=== PATIENT | male | born 1985 | race Caucasian/White ===

== ENCOUNTER 2017-12-04 23:48 | Emergency (ER) | payer MEDICAID ==
[~2017-12-04] VITALS: Ht 170.2 cm; Wt 60.4 kg
[2017-12-05 00:03] VITALS: BP 118/71
[2017-12-05] MEDS ORDERED: LIDOcaine Viscous 15ml cup MM PRN (04:30)
[2017-12-05] MEDS ORDERED: sucralfate 1gm/10ml UD suspension PO SCH (04:30)
[2017-12-05] MEDS ORDERED: mag hydrox/Alum hydrox/simeth 30ml oral suspension PO ONE (04:30)
== END 2017-12-05 05:06 | disposition home or self-care (01) ==
LOC: ER 23:49
DX: K21.9 Gastro-esophageal reflux disease without esophagitis (principal)
CPT/HCPCS: 99283

== ENCOUNTER 2017-12-30 13:36 | Emergency (ER) | payer MEDICAID ==
[~2017-12-30] VITALS: Ht 170.2 cm; Wt 65.6 kg
[2017-12-30 14:02] VITALS: BP 110/85
== END 2017-12-30 14:51 | disposition home or self-care (01) ==
LOC: ER 13:38
DX: S90.822A Blister (nonthermal), left foot, initial encounter (principal); S90.821A Blister (nonthermal), right foot, initial encounter; K21.9 Gastro-esophageal reflux disease without esophagitis; X58.XXXA Exposure to other specified factors, initial encounter; Y93.89 Activity, other specified; Y92.89 Other specified places as the place of occurrence of the external cause; Y99.8 Other external cause status
CPT/HCPCS: 99281

== ENCOUNTER 2018-01-12 17:10 | Emergency (ER) | payer MEDICAID ==
[~2018-01-12] VITALS: Ht 170.2 cm; Wt 67.0 kg
[2018-01-12 17:18] VITALS: BP 119/68
[2018-01-12] MEDS ORDERED: DOXY100C2 PO (19:32)
== END 2018-01-12 19:50 | disposition home or self-care (01) ==
LOC: ER 17:11
DX: L02.811 Cutaneous abscess of head [any part, except face] (principal); K21.9 Gastro-esophageal reflux disease without esophagitis; Z79.899 Other long term (current) drug therapy
CPT/HCPCS: 99283

== ENCOUNTER 2020-12-28 20:39 | Emergency (ER) | payer MEDICAID ==
[~2020-12-28] VITALS: Ht 170.2 cm; Wt 58.7 kg
[2020-12-28] MEDS ORDERED: CEPH-585 PO (22:37)
[2020-12-28 22:44] VITALS: BP 137/96
== END 2020-12-28 22:46 | disposition home or self-care (01) ==
LOC: ER 20:40
DX: S61.411A Laceration without foreign body of right hand, initial encounter (principal); K21.9 Gastro-esophageal reflux disease without esophagitis; Z72.89 Other problems related to lifestyle; W25.XXXA Contact with sharp glass, initial encounter; Y93.89 Activity, other specified; Y92.89 Other specified places as the place of occurrence of the external cause; Y99.8 Other external cause status
CPT/HCPCS: 73120; 99283

== ENCOUNTER 2024-10-07 15:04 | Emergency (ER) | payer MEDICAID ==
[~2024-10-07] VITALS: Ht 170.2 cm; Wt 75.7 kg
[2024-10-07] MEDS ORDERED: PSEU120T56 PO (17:06)
[2024-10-07] MEDS ORDERED: IBUP-864 PO (17:06)
[2024-10-07] MEDS ORDERED: AMOX-117 PO (17:06)
[2024-10-07 17:12] VITALS: BP 118/76; PULSE 110; RESP 16; TEMP 98.6; O2SAT 98
== END 2024-10-07 17:13 | disposition home or self-care (01) ==
LOC: ER 15:04
DX: J32.0 Chronic maxillary sinusitis (principal); J32.1 Chronic frontal sinusitis; K21.9 Gastro-esophageal reflux disease without esophagitis
CPT/HCPCS: 99283

== ENCOUNTER 2025-02-18 21:08 | Emergency (ER) | payer MEDICAID ==
[~2025-02-18] VITALS: Ht 170.2 cm; Wt 71.5 kg
[~2025-02-18 21:08] MED LIST: IBUP-864 PO; PSEU120T56 PO
[2025-02-18 21:12] VITALS: BP 139/80; PULSE 108; TEMP 98.2; O2SAT 98
--- NOTE | 2025-02-18 23:10 | RADIOLOGY REPORT ---
INDICATION: pain TECHNIQUE: AP, lateral and odontoid radiographs of the cervical spine. COMPARISON: None FINDINGS: No prevertebral soft tissue abnormality noted. Mild reversal of the normal cervical lordosis. No list hesis. The cervical vertebral bodies appear within normal limits. Degenerative disc disease at C5-C6 with [id number] disc space narrowing and osteophytes. The remainder of the levels in the cervic al spine appear unremarkable. Facet joints appear unremarkable. IMPRESSION: No acute abnormality identified. Degenerative disc disease at C5-C6.
--- NOTE | 2025-02-18 23:43 | Physician Documentation ---
History of Present Illness ~ Chief Complaint: Neck pain Stated Complaint: BACK PAIN Time Seen by MD: 21:29 Primary Medical Doctor: donna COLLIER 39-year-old male reports a chief complaint of neck pain. Patient states he feels like he slept on his neck wrong. States he believes he has could pinched nerve in my neck. Denies fevers or chills. Denies headaches. Currently not taking medications therapy has been in symptoms. No other complaints at this time Medication Reconciliation Allergies: Coded Allergies: No Known Allergies (Unverified , 10/07/24) Scheduled Ibuprofen (Ibu), 1 TAB PO Q8H Pseudoephedrine HCl (Sudafed 12 Hour), 1 TAB PO Q12H Past Medical History Past Medical History: GERD Past Surgical History: no surgical history Alcohol Use: Occasionally Drug Use: none Lives In: Home Occupation: employed Physical Exam Vital Signs: Temperature: 98.2, Source: Temporal, Heart Rate: 108, Respiratory Rate: 20, BP: 139/80, Pulse Oximetry: 98, Weight: 71.450 Oxygen Flow Rate: 0 Physical Exam General: Well developed, well nourished, no distress. HEENT: Atraumatic, normal conjunctiva, moist mucous membranes. Neck: Full range of motion, supple. Positive for midline tenderness to cervical spine see three-C7. Negative step-off. Positive for bilateral paraspinal tenderness C3-T1. C3-T1 motor sensory grossly intact with 5/5 strength in bilateral upper extremities. Negative Spurling's. Negative Aleena's. Respiratory: Lungs clear, no respiratory distress. Chest: No accessory muscle use, nontender. Cardiovascular: Regular rate and rhythm. Gastrointestinal: Soft, nontender, nondistended. Bowel sounds present. Extremities: Normal range of motion, nontender, normal capillary refill, no deformity. Back: No midline tenderness, no CVA tenderness. Neurologic: Oriented x4. Distal gross motor and sensory intact all four extremities. Moves all 4 extremities spontaneously. Psychiatric: Normal mood and affect. Skin: Normal color, warm and dry. No edema, no ecchymosis Progress Results/Orders Results/Orders Orders - MOOSE DURÁN Cyclobenzaprine Tablet (Flexeril Tablet) (02/18/25 21:30) Cervical [facility]ine Ltd (02/18/25 21:30) Lidocaine 5% Patch (Lidoderm 5% Patch) (02/19/25 08:00) Lidocaine 2% Viscous (Xylocaine 2% Visco (02/18/25 23:25) Completed Orders - MOOSE DURÁN Ketorolac Trometh 30mg/Ml Vial (Toradol (02/18/25 21:30) Dexamethasone Inj (Decadron 10mg/Ml Inj) (02/18/25 21:30) Cervical Spine Ltd (02/18/25 21:30) Hydrocodone/Apap 10/325 ([place] 10/325mg (02/18/25 23:25) Dicyclomine Capsule (Bentyl Capsule) (02/18/25 23:25) Mag & Alum Hydrox/Simeth Susp (Maalox Or (02/18/25 23:25) Vital Signs 02/18/25 21:12 Temp 98.2 Pulse 108 Resp 20 B/P (MAP) 139/80 Pulse Ox 98 O2 Flow Rate 0 Medical Decision Making Additional info obtained from: old records Findings After detailed discussion jet medical decision-making, diagnostic imaging results were discussed with patient. At this time patient appears just to have muscle strain to the neck. Patient will be given symptomatic treatment discharged with medications for pain. Patient is asking for refill of his GI medications we will be given. ER precautions given. Patient is stable upon discharge. All patient questions answered to satisfaction Differential Dx:Considerations: Include: Cervical muscle spasm, Discitis, DJD Departure Disposition: HOME / SELF CARE / HOMELESS Impression: Primary Impression: Neck pain Additional Impressions: Cervical strain Medication refill Condition: Stable Discharge Instructions: Cervical Sprain Referrals: NO PRIMARY CARE PROVIDER (PCP) Prescriptions Dicyclomine HCl (Dicyclomine HCl) 20 Mg Tablet 1 TAB PO Q12H for irritable bowel symptoms for 30 Days, #60 TAB 0 Refills Prov: MOOSE DURÁN 02/18/25 Lidocaine (Lidoderm) 5 % Adh..patch 1 PATCH TOP DAILY for 30 Days, #30 PATCH 0 Refills may wear up to 12 hours Prov: MOOSE DURNÁ 02/18/25 Cyclobenzaprine* (Cyclobenzaprine*) 10 Mg Tablet 1 TAB PO HS for muscle spasms for 30 Days, #30 TAB 0 Refills Prov: MOOSE DURÁN 02/18/25 Hydrocodone Bit/Acetaminophen 5/325 MG ([place] 5/325 MG) 5 Mg/325 Mg Tablet 1 TAB PO Q12H PRN PRN for pain for 5 Days, #10 TAB Prov: MOOSE DURÁN 02/18/25 Education Educated: Patient Educated regarding: diagnosis, treatment Signature Scribe Signature: none used Attestation: Scribed for Moose Durán by Moose PITTMAN . 02/18/25 23:52 MOOSE DURÁN February 18, 2025 23:43
[2025-02-18] MEDS ORDERED: HYDR-3965 PO (23:50)
[2025-02-18] MEDS ORDERED: DICY20TA17 PO (23:50)
[2025-02-18] MEDS ORDERED: CYCL-1 PO (23:50)
[2025-02-18] MEDS ORDERED: LIDO700A32 TOP (23:50)
[2025-02-18] MEDS: dexamethasone sod phosphate 10mg/ml inj IM STA (23:57)
[2025-02-18 23:58] VITALS: RESP 16
[2025-02-18] MEDS: ketorolac trometh 30MG/ML vial 30 MG/ML VIAL IM ONE (23:58)
[2025-02-18] MEDS: cyclobenzaprine 10mg tablet PO ONE (23:58)
[2025-02-18] MEDS: mag hydrox/Alum hydrox/simeth 30ml oral suspension PO ONE (23:58)
[2025-02-18] MEDS: dicyclomine 10 MG capsule PO ONE (23:58)
[2025-02-18] MEDS: HYDROcodone/acetaminophen 10/325mg tab PO ONE (23:58)
[2025-02-19] MEDS: LIDOcaine 2% Viscous 15ml cup MM PRN (00:01)
[2025-02-19] MEDS ORDERED: LIDOcaine 5% patch TP SCH (08:00)
[2025-02-20] MEDS ORDERED: IBUP-864 PO (01:03)
== END 2025-02-19 00:17 | disposition home or self-care (01) ==
LOC: ER 21:08
DX: S16.1XXA Strain of muscle, fascia and tendon at neck level, initial encounter (principal); K21.9 Gastro-esophageal reflux disease without esophagitis; Z76.0 Encounter for issue of repeat prescription; Z72.89 Other problems related to lifestyle; Z79.899 Other long term (current) drug therapy; X58.XXXA Exposure to other specified factors, initial encounter; Y93.89 Activity, other specified; Y92.89 Other specified places as the place of occurrence of the external cause; Y99.8 Other external cause status
CPT/HCPCS: 72040; 96372; 99284; J1100; J1885

== ENCOUNTER 2025-03-03 03:17 | Emergency (ER) | payer MEDICAID ==
[~2025-03-03] VITALS: Ht 170.2 cm; Wt 72.7 kg
[~2025-03-03 03:17] MED LIST changes: +CYCL-1 PO; +DICY20TA17 PO; +HYDR-3965 PO; +LIDO700A32 TOP
--- NOTE | 2025-03-03 03:52 | Physician Documentation ---
History of Present Illness ~ Chief Complaint: Back Pain Stated Complaint: BACK AND ARM PAIN Time Seen by MD: 03:46 Primary Medical Doctor: donna COLLIER Patient presents to the emergency room requesting help with some spasms he states he has has been in the right side of his back and down his arm. He was seen here two weeks ago for neck pain prescribed muscle relaxers and [place]. He states he has had some Tylenol on top of that but the Toradol injection worked well. Patient denies falls or injuries. Medication Reconciliation Allergies: Coded Allergies: No Known Allergies (Unverified , 10/07/24) Scheduled Cyclobenzaprine* (Cyclobenzaprine*), 1 TAB PO HS Dicyclomine HCl (Dicyclomine HCl), 1 TAB PO Q12H Ibuprofen (Ibu), 1 TAB PO Q8H Lidocaine (Lidoderm), 1 PATCH TOP DAILY Pseudoephedrine HCl (Sudafed 12 Hour), 1 TAB PO Q12H Scheduled PRN Hydrocodone Bit/Acetaminophen 5/325 MG ([place] 5/325 MG), 1 TAB PO Q12H PRN PRN for pain Past Medical History Past Medical History: GERD Past Surgical History: no surgical history Alcohol Use: Occasionally Drug Use: none Lives In: Home Occupation: employed Review of Systems ROS All review of systems negative except as per HPI Physical Exam Physical Exam Vital Signs: Temperature: 97.6, Heart Rate: 88, Respiratory Rate: 16, BP: 127/91, Pulse Oximetry: 100, Weight: 72.730 Physical Exam General: Patient is resting comfortably. Cooperative. Pressured speech Head: Normocephalic and atraumatic. Eyes: Conjunctival normal. EOMI. PERRL. ENT: Mucous membranes moist. Neck: Supple, trachea is midline. Chest: Clear to auscultation bilaterally without rales, rhonchi, or wheezes. There is no accessory muscle use or retractions. Cardiac: RRR without murmurs, gallops, or rubs. Back: Tenderness to palpation to right side midthoracic paraspinal musculature Progress Results/Orders Results/Orders Orders - WARREN NIX MD Ketorolac Trometh 15mg/Ml Vial (Toradol (03/03/25 03:55) Acetaminophen 325mg Tablet (Tylenol Tabl (03/03/25 03:55) Cyclobenzaprine Tablet (Flexeril Tablet) (03/03/25 03:55) Vital Signs 03/03/25 03/03/25 03:19 03:50 Temp 97.6 Pulse 88 Resp 16 16 B/P (MAP) 127/91 Pulse Ox 100 Medical Decision Making Findings Patient presented to the emergency room with complaints of back spasms. Differentials include but are not limited to musculoskeletal pain, referred pain, aortic pathology, malingering. Given patient's history do not feel he requires emergent labs or imaging. We will treat him symptomatically. Departure Disposition: HOME / SELF CARE / HOMELESS Impression: Primary Impression: Strain of thoracic region Condition: Stable Discharge Instructions: Acute Back Pain, Adult Referrals: NO PRIMARY CARE PROVIDER (PCP) Prescriptions Acetaminophen (Tylenol Extra Strength) 500 Mg Tablet 2 TABLET PO Q6H, #30 TABLET 1 Refill Prov: WARREN NIX MD 03/03/25 Meloxicam* (Meloxicam*) 7.5 Mg Tablet 1 TAB PO DAILY for 30 Days, #30 TAB 0 Refills Prov: WARREN NIX MD 03/03/25 Cyclobenzaprine* (Cyclobenzaprine*) 10 Mg Tablet 1 TAB PO HS for muscle spasms for 30 Days, #20 TAB 0 Refills Prov: WARREN NIX MD 03/03/25 Education Educated: Patient Educated regarding: diagnosis, treatment, need for follow up Signature Scribe Signature: No scribe Attestation: The note accurately reflects work and decisions made by me.Warren Nix MD 03/03/25 03:54 WARREN NIX MD Mar 03, 2025 03:52
[2025-03-03] MEDS ORDERED: ACET-812 PO (03:57)
[2025-03-03] MEDS ORDERED: MELO-100 PO (03:57)
[2025-03-03] MEDS ORDERED: CYCL-1 PO (03:57)
[2025-03-03] MEDS: cyclobenzaprine 10mg tablet PO ONE (04:06)
[2025-03-03] MEDS: ketorolac trometh 15mg/ml vial 15 MG/ML ML IM ONE (04:06)
[2025-03-03] MEDS: acetaminophen 325mg tablet PO ONE (04:07)
[2025-03-03 04:47] VITALS: BP 126/80; PULSE 70; RESP 18; TEMP 98.2; O2SAT 99
== END 2025-03-03 04:30 | disposition home or self-care (01) ==
LOC: ER 03:18
DX: S29.012A Strain of muscle and tendon of back wall of thorax, initial encounter (principal); K21.9 Gastro-esophageal reflux disease without esophagitis; Z79.899 Other long term (current) drug therapy; Z72.89 Other problems related to lifestyle; X58.XXXA Exposure to other specified factors, initial encounter; Y93.89 Activity, other specified; Y92.89 Other specified places as the place of occurrence of the external cause; Y99.8 Other external cause status
CPT/HCPCS: 96372; 99283; J1885